=== PATIENT | male | born 1940 | race Caucasian/White ===

== ENCOUNTER → 2025-03-12 17:09 | Outpatient (CLI) | payer MEDICARE, SELFPAY ==
--- NOTE | 2025-03-12 17:15 | DI.MRI.S_ITS ---
PROCEDURE: MR KNEE RT WO CON INDICATIONS: Knee pain TECHNIQUE: Noncontrast sagittal PD fast spin echo and T2 fast spin echo with fat saturation, sagittal 3-D FLASH with fat saturation; coronal T1 spin echo and PD fast spin echo with fat saturation, and axial PD fast spin echo with fat saturation through the knee. COMPARISON: None. FINDINGS: Image quality: Excellent. Menisci: Markedly abnormal appearance of the medial meniscus with maceration/degeneration the posterior horn extending into the mid body likely chronic tear. Blunting of the apex of the anterior horn which is displaced anteriorly and medially. Mild signal changes in the lateral meniscus in the midbody suspicious for horizontal oriented tear which appears to exit to the superior surface and extending slightly into the apices of the anterior and posterior horns. Posterior meniscocapsular separation and anterior 1 cm parameniscal cyst. Cruciate ligaments: Mild signal changes and diffuse thinning of the anterior aspect of the anterior cruciate ligament but with intact fibers likely chronic changes. Posterior cruciate ligament is intact. Medial structures: Mild increased T2 weighted signal surrounding the medial collateral ligament suspicious for grade 1 injury which may be chronic. Mild soft tissue edema and mild pes anserine bursal fluid. Semimembranosus tendon is normal. Lateral structures: The lateral collateral ligament, long and short heads of the biceps femoris tendon appear intact. Mild increased T2 weighted signal of the distal popliteus muscle and tendon without tear likely injury/strain. Iliotibial band appears normal. Anterior structures: The quadriceps and patellar tendons appear intact. Patellar alignment is normal. No femoral trochlear dysplasia or ventral trochlear prominence. Bones and cartilage: Moderate diffuse cartilaginous thinning and irregularity in the medial compartment with subchondral edema and near [id number] configuration with a low T1 heterogeneous T2 area signal changes in the medial tibial plateau spanning 1.5 cm (sees series 12, 13, images 21-22) Joint space: Moderate knee joint effusion. No significant popliteal cyst. Mild nonspecific prepatellar, medial and lateral subcutaneous edema. IMPRESSION: Marked abnormality of the medial meniscus with maceration/degeneration chronic changes and near [id number] configuration associated bone edema signal changes in the medial tibial plateau and to a lesser degree medial femoral condyle. Moderate knee joint effusion. Mild signal changes in the anterior cruciate ligament popliteus tendon as discussed above. Dictated by: Trung Mayers M.D. on 03/13/2025 at 11:23 Approved by: Trung Mayers M.D. on 03/13/2025 at 11:39
== END ==
PROVIDERS: Referring Provider Orthopaedic Surgery; Visit Provider Orthopaedic Surgery
DX: M25.461 Effusion, right knee (principal); M25.561 Pain in right knee
CPT/HCPCS: 73721